=== PATIENT | female | born 1985 | race African-American/Black ===

== ENCOUNTER 2016-09-10 15:41 | Emergency (ER) | payer OTHER ==
[2016-09-10 15:53] VITALS: BP 134/78
--- NOTE | 2016-09-10 16:02 | ED Physician Documentation ---
Ear Complaints - HISTORIAN Historian: patient - HPI Stated Complaint: FB in right ear Chief Complaint: Ear Complaints Additional Information: Awoke this am with sensation of bug crawling in her ear. Has been flushing the ear canal intermittently all day. Feels like her hearing is affected in the ear. Talked with nurse at the [facility] and says she was told to stop flushing the ear because it could affect her heart. - PAST HX Past History: none Allergies/Adverse Reactions: Allergies Allergy/AdvReac Type Severity Reaction Status Date / Time No Known Allergies Allergy Verified 09/10/16 15:49 Home Medications: Ambulatory Orders Medication Instructions Recorded NK [NK] 09/10/16 - SOCIAL HX Smoking History: non-smoker - FAMILY HX Family History: No - VITAL SIGNS Vital Signs: Vital Signs Temp Pulse Resp BP Pulse Ox 98.1 F 79 18 134/78 98 09/10/16 15:50 09/10/16 15:50 09/10/16 15:50 09/10/16 15:50 09/10/16 15:50 - REVIEWED ASSESSMENTS Nursing Assessment Reviewed: Yes Vitals Reviewed: Yes Ear Complaint Physical Exam - EXAM General Appearance: no acute distress, alert Ear: auricle nml, clinical investigator.canal nml, right, cerumen (portion of YM that is visible appears normal. No FB visualized.). No: pain w movement of auricl, material in canal Mouth/Throat: lips nml, gums nml Nose: nml inspection Head/Neck: atraumatic, neck nml inspection Eye: eyes nml inspection Resp/CVS: no resp. distress Skin: nml color Neuro/Psych: mood/affect nml Discharge Clincal Impression: Foreign body sensation in right ear canal Additional Instructions: There is a fair amount of wax in the right ear that is probably swollen with water. This can affect your hearing. Follow up with your provider as needed. Home Medications: Ambulatory Orders NK [NK] 09/10/16 Condition: Good Disposition: 01 HOME, SELF-CARE Decision to Admit: NO Decision Time: 15:57
== END 2016-09-10 16:11 | disposition home or self-care (01) ==
LOC: ED 15:41
DX: H61.21 Impacted cerumen, right ear (principal)
CPT/HCPCS: 99283